=== PATIENT | female | born 1980 | race Hispanic/Latino ===

== ENCOUNTER 2017-10-25 21:19 | Emergency (ER) | payer MEDICARE ==
[~2017-10-25 21:19] MED LIST: ABAT125S SQ; ACET1TAB25 PO; DULO30CA51 PO; FENO135C4 PO; FOLI1TAB15 PO; LISI1TAB11 PO; METH25VI11 IJ; NITR0.4T SL; PREG150C PO; TRAM50TA4 PO
[2017-10-25] MEDS ORDERED: CHARCOAL/SORBITOL 50 GM/240 ML SUSP ONE ×2 (21:41→21:51)
[2017-10-25] MEDS ORDERED: SODIUM CHLORIDE 0.9% 1000ML 1,000 ML IV ONE (21:51)
[2017-10-25 22:24] LABS: BASOPHILS % (AUTO) 0.8 % (0.0-5.0); EOSINOPHILS % (AUTO) 2.1 % (0.0-8.0); HEMATOCRIT 38.7 % (36-48); LYMPHOCYTES % (AUTO) 32.6 % (21.0-51.0); MEAN CORPUSCULAR HEMOGLOBIN 26.4 pg (27.0-33.0); MEAN CORPUSCULAR HGB CONC 33.2 g/dL (32.0-36.0); MEAN CORPUSCULAR VOLUME 79.3 fL (79-99); MONOCYTES % (AUTO) 6.7 % (3.0-13.0); NEUTROPHILS % (AUTO) 57.8 % (40.0-77.0); PLATELET COUNT (AUTO) 282 K/uL (130-400); RED BLOOD CELL COUNT(AUTO) 4.87 MIL/uL (4.00-5.50); RED CELL DISTRIBUTION WIDTH 15.3 % (11.0-15.5); WHITE BLOOD COUNT (AUTO) 10.6 K/uL (4.8-10.8)
[2017-10-25 22:34] LABS: CARBON DIOXIDE 29 mmol/L (21-32); CHLORIDE 103 mmol/L (101-111); CREATININE 0.6 mg/dL (0.5-1.5); GLOMERULAR FILTR. RATE CALC 120 mL/min (>60); GLUCOSE,RANDOM 145 mg/dL (70-105); POTASSIUM 3.7 mmol/L (3.5-5.1); SODIUM SERUM 142 mmol/L (136-145); UREA NITROGEN, BLOOD 17 mg/dL (7-18)
[2017-10-25 22:38] LABS: ALANINE AMINOTRANSFERASE 38 U/L (12-78); ALBUMIN 3.5 g/dL (3.5-5.0); ASPARTATE AMINOTRANSFERASE 23 U/L (10-37); BILIRUBIN,TOTAL 0.2 mg/dL (0.2-1.0); TOTAL PROTEIN, SERUM 7.4 g/dL (6.0-8.3)
[2017-10-25 22:52] LABS: ACETAMINOPHEN < 1 mcg/mL (10-30); ALCOHOL, BLOOD < 3 mg/dL (0-10)
[2017-10-26 00:15] LABS: SALICYLATE < 2.8 mg/dL (2.8-20.0)
[2017-10-26 03:10] LABS: AMPHET/METH SCREEN,URINE NEGATIVE (NEGATIVE); BARBITURATE SCREEN, URINE NEGATIVE (NEGATIVE); BENZODIAZEPINES SCREEN,URINE NEGATIVE (NEGATIVE); CANNABINOID SCREEN,URINE NEGATIVE (NEGATIVE); COCAINE SCREEN,URINE NEGATIVE (NEGATIVE); OPIATE SCREEN,URINE NEGATIVE (NEGATIVE); PHENCYCLIDINE SCREEN,URINE NEGATIVE (NEGATIVE)
== END 2017-10-26 03:37 | disposition home or self-care (01) ==
LOC: EDH 21:19
DX: T43.212A Poisoning by selective serotonin and norepinephrine reuptake inhibitors, intentional self-harm, initial encounter (principal); M06.9 Rheumatoid arthritis, unspecified; I10 Essential (primary) hypertension; Y92.098 Other place in other non-institutional residence as the place of occurrence of the external cause
CPT/HCPCS: 36415; 80053; 80305; 84703; 85025; 93005; 96360; 96361; 99285; G0480 ×2; G0481; J7030

== ENCOUNTER 2019-09-20 23:38 | Emergency (ER) | payer MEDICARE ==
[~2019-09-20 23:38] MED LIST changes: -DULO30CA51 PO; +DULO30CA52 PO; -LISI1TAB11 PO; +LISI1TAB28 PO
[2019-09-21] MEDS ORDERED: DiphenhydrAMINE HCL 50 MG/ML VIAL ONE (00:14)
[2019-09-21] MEDS ORDERED: METOCLOPRAMIDE 10 MG/2 ML VIAL ONE (00:14)
[2019-09-21] MEDS ORDERED: KETOROLAC TROMETHAMINE 30MG/ML ONE (00:14)
[2019-09-21] MEDS ORDERED: SODIUM CHLORIDE 0.9% 1000ML 2,000 ML IV ONE (00:19)
== END 2019-09-21 01:10 | disposition home or self-care (01) ==
LOC: EDH 23:38
DX: M62.838 Other muscle spasm (principal); R51 Headache; M54.9 Dorsalgia, unspecified; M79.7 Fibromyalgia; M06.9 Rheumatoid arthritis, unspecified; Z98.890 Other specified postprocedural states; Z79.899 Other long term (current) drug therapy
CPT/HCPCS: 96374; 96375; 99284; J1200; J1885; J2765; J7030

== ENCOUNTER 2024-11-17 22:22 | Emergency (ER) | payer MEDICARE ==
[~2024-11-17] VITALS: Ht 165.1 cm; Wt 90.7 kg
[~2024-11-17 22:22] MED LIST changes: +ACET-2079 PO; -ACET1TAB25 PO; -LISI1TAB28 PO; +LISI1TAB51 PO
[2024-11-17 22:23] VITALS: BP 146/94; PULSE 85; RESP 20; TEMP 98
--- NOTE | 2024-11-18 01:05 | NUR ---
CALLED OUT FOR PATIENT, NOT IN LOBBY
== END 2024-11-18 02:15 | disposition left against medical advice (07) ==
LOC: EDH 22:22
DX: R11.2 Nausea with vomiting, unspecified (principal); R19.7 Diarrhea, unspecified; Z53.21 Procedure and treatment not carried out due to patient leaving prior to being seen by health care provider